=== PATIENT | male | born 1995 | race African-American/Black ===

== ENCOUNTER 2017-10-24 14:52 | Emergency (ER) | payer OTHER | END 2017-10-24 17:20 | disposition left against medical advice (07) | LOC: M ED 14:52 | DX: Z53.21 Procedure and treatment not carried out due to patient leaving prior to being seen by health care provider (principal) ==

== ENCOUNTER 2021-11-01 12:01 | Emergency (ER) | payer OTHER ==
[~2021-11-01] VITALS: Ht 172.7 cm; Wt 84.1 kg
[2021-11-01 12:07] VITALS: BP 129/78
[2021-11-01] MEDS ORDERED: METH-1164 PO (12:53)
== END 2021-11-01 13:09 | disposition home or self-care (01) ==
LOC: M ED 12:01
DX: M25.511 Pain in right shoulder (principal); X50.0XXA Overexertion from strenuous movement or load, initial encounter; Y92.009 Unspecified place in unspecified non-institutional (private) residence as the place of occurrence of the external cause; Y99.9 Unspecified external cause status; Y93.9 Activity, unspecified